=== PATIENT | male | born 1965 | race Two or more races ===

== ENCOUNTER 2020-11-17 08:15 | Outpatient (CLI) | payer OTHER | END 2020-11-17 09:20 | disposition home or self-care (01) | LOC: PPH VACUNA 08:15 | PROVIDERS: ATTEND Emergency Medicine Pediatric Emergency Medicine | DX: Z23 Encounter for immunization (principal) ==

== ENCOUNTER 2021-11-13 08:07 | Outpatient (CLI) | payer OTHER | END 2021-11-13 08:12 | disposition home or self-care (01) | LOC: SONOGRAMA 08:07 | PROVIDERS: ATTEND Pathology Anatomic Pathology | DX: C76.3 Malignant neoplasm of pelvis (principal); C79.89 Secondary malignant neoplasm of other specified sites; R59.9 Enlarged lymph nodes, unspecified ==